=== PATIENT | male | born 1970 | race Hispanic/Latino ===

== ENCOUNTER 2021-06-26 16:33 | Emergency (ER) | payer SELFPAY ==
[~2021-06-26] VITALS: Ht 167.6 cm; Wt 79.5 kg
[2021-06-26] MEDS ORDERED: GENTAMICIN SULF5 ML OS (18:41)
[2021-06-26 18:48] VITALS: BP 132/78
== END 2021-06-26 18:48 | disposition home or self-care (01) | DRG 125 ==
LOC: ED 16:33
DX: S05.02XA Injury of conjunctiva and corneal abrasion without foreign body, left eye, initial encounter (principal); X58.XXXA Exposure to other specified factors, initial encounter; Y93.89 Activity, other specified; Y92.009 Unspecified place in unspecified non-institutional (private) residence as the place of occurrence of the external cause